=== PATIENT | male | born 1985 | race Two or more races ===

== ENCOUNTER 2022-12-31 08:54 | Emergency (ER) | payer SELFPAY ==
[~2022-12-31] VITALS: Ht 167.6 cm; Wt 82.0 kg
[2022-12-31 10:14] VITALS: BP 143/95
[2022-12-31] MEDS ORDERED: IBUP600T28 PO (10:37)
[2022-12-31] MEDS ORDERED: [UNRECOGNIZED DRUG - CODE] OT (10:37)
== END 2022-12-31 10:41 | disposition home or self-care (01) ==
LOC: ER 08:54
DX: H60.92 Unspecified otitis externa, left ear (principal)

== ENCOUNTER 2024-02-15 05:31 | Emergency (ER) | payer SELFPAY ==
[~2024-02-15] VITALS: Ht 167.6 cm; Wt 72.5 kg
[~2024-02-15 05:31] MED LIST: IBUP1TAB5 PO; [UNRECOGNIZED DRUG - CODE] OT
[2024-02-15 05:44] VITALS: TEMP 99.1
[2024-02-15 05:46] VITALS: BP 128/96; PULSE 108; RESP 16; O2SAT 96
== END 2024-02-15 06:52 | disposition left against medical advice (07) ==
LOC: ER 05:31
DX: M79.672 Pain in left foot (principal); M79.671 Pain in right foot; Z53.21 Procedure and treatment not carried out due to patient leaving prior to being seen by health care provider